=== PATIENT | female | born 1990 | race Caucasian/White ===

== ENCOUNTER 2018-03-15 15:42 | Emergency (ER) | payer SELFPAY ==
[~2018-03-15] VITALS: Ht 218.4 cm; Wt 72.6 kg
[2018-03-15 15:47] VITALS: BP 109/86
--- NOTE | 2018-03-15 16:08 | NUR ---
PATIENT PRESENTS TO ED WITH COMPLAINTS OF RIGHT BREAST PAIN. PATIENT REPORTS SHE IS AND HAS HAD FEVER OF 101.5F AND HARD NODULES ON THE RIGHT BREAST. DENIES N/V/D; SKIN IS PINK/WARM/DRY; AAOX4 WITH EVEN AND STEADY GAIT; LUNGS CLEAR BL; HR EVEN AND REGULAR; PT DENIES ANY CP, SOB, OR COUGH AT THIS TIME; PATIENT STATES PAIN OF 5/10 AT THIS TIME; VSS; PATIENT POSITIONED FOR COMFORT; HOB ELEVATED; BEDRAILS UP X1; BED DOWN. ER MD MADE AWARE OF PT STATUS.
[2018-03-15 16:35] VITALS: BP 109/86
== END 2018-03-15 16:35 | disposition home or self-care (01) ==
LOC: MED 15:42
DX: N61.0 Mastitis without abscess (principal)
CPT/HCPCS: 99283